=== PATIENT | female | born 1965 | race Two or more races ===

== ENCOUNTER 2021-02-27 03:06 | Emergency (ER) | payer OTHER ==
[~2021-02-27] VITALS: Ht 154.9 cm; Wt 66.7 kg
[2021-02-27] MEDS ORDERED: ACETAMINOPHEN 325 MG TAB PO ONE ×3 (03:15→07:00)
[2021-02-27 04:15] LABS: Basophils # (auto) 0.1 10 ^3/uL (0-0.2); Basophils % (auto) 0.5 % (0.0-2.0); Eosinophils # (auto) 0 10 ^3/uL (0-0.8); Hematocrit 42.8 % (36.0-46.0); Hemoglobin 14.2 g/dL (12.2-16.2); Lymphocytes # (auto) 0.7 10 ^3/uL (0.4-5.4); Lymphocytes % (auto) 5.6 % (10.0-50.0); Mean Corpuscular Hemoglobin 28.4 pg (28.0-32.0); Mean Corpuscular Hgb Conc. 33.1 g/dL (32.0-36.0); Mean Corpuscular Volume 85.8 fL (80.0-100.0); Monocytes # (auto) 0.5 10 ^3/uL (0-1.3); Monocytes % (auto) 3.7 % (0.0-12.0); Neutrophils # (auto) 11.6 10 ^3/uL (1.6-8.6); Neutrophils % (auto) 90.2 % (37.0-80.0); Red Blood Cells 4.99 10^6/uL (4.0-5.20); Red Cell Distribution Width 13.7 % (11.8-14.3); White Blood Cell 12.9 10^3/uL (4.4-10.8)
[2021-02-27 04:32] LABS: Albumin 3.7 g/dL (3.4-5.0); BUN/Creatinine Ratio 15.8; Potassium 3.9 mmol/L (3.5-5.1)
[2021-02-27 04:35] LABS: Bilirubin, Total 0.3 mg/dL (0.2-1.0); Total Protein 8.8 g/dL (6.4-8.2)
[2021-02-27 07:43] LABS: Urine Bacteria FEW /hpf (None Seen); Urine Blood 1+ /uL (Negative); Urine Mucus FEW (None Seen); Urine Specific Gravity 1.013 (1.001-1.035); Urine WBC 31 /hpf (0 - 5)
[2021-02-27] MEDS ORDERED: cefTRIAXone 1GM/50ML D5W 50 ML IV ONE (08:00)
[2021-02-27] MEDS ORDERED: SODIUM CHLORIDE 0.9% 500 ML IV ONE (08:00)
[2021-02-27] MEDS ORDERED: ONDANSETRON HCL 4 MG/2 ML VIAL IV ONE (08:00)
[2021-02-27] MEDS ORDERED: MORPHINE SULFATE INJECTION 2 MG/ML SYRG IV ONE (08:00)
[2021-02-27] MEDS ORDERED: IBUPROFEN 800 MG TAB PO ONE (13:15)
[2021-02-27 15:15] VITALS: BP 135/96
== END 2021-02-27 15:28 | disposition home or self-care (01) ==
LOC: ER 03:06
DX: N39.0 Urinary tract infection, site not specified (principal); R10.13 Epigastric pain; E78.5 Hyperlipidemia, unspecified; Z90.49 Acquired absence of other specified parts of digestive tract; Z90.710 Acquired absence of both cervix and uterus; Z20.822 Contact with and (suspected) exposure to COVID-19
CPT/HCPCS: 36415; 71046; 80053; 81001; 83605; 85025; 87040; 87426; 96365; 96375; 99284; J0696; J2270; J2405